=== PATIENT | female | born 1960 | race Caucasian/White ===

== ENCOUNTER → 2024-04-12 07:38 | Outpatient (REF) | payer MEDICARE, BC, SELFPAY | LOC: HWWDC 07:38 | PROVIDERS: ATTENDING PHYSICIAN Obstetrics & Gynecology | DX: Z12.31 Encounter for screening mammogram for malignant neoplasm of breast (principal) | CPT/HCPCS: 77063; 77067 ==

== ENCOUNTER 2024-07-20 08:54 | Emergency (ER) | payer MEDICARE, BC, SELFPAY ==
[2024-07-20] VITALS (7 sets, daily range): BP systolic 92–117; BP diastolic 64–74; BMI 23.3
--- NOTE | 2024-07-20 09:47 | ED.GENMED ---
Addendum entered and electronically signed by Jayme Calhoun DO 07/24/24 11:28:
Patient CT report has abdominal pain, nausea, vomiting diarrhea. Met with the patient and she stated that there was no nausea vomiting or diarrhea. This is confirmed by Dr. Golden's chart.
Original Note:
History of Present Illness
General
Chief Complaint: Abdominal Pain
Time Seen by Provider: 07/20/24 09:38
History of Present Illness
History of Present Illness:
64-year-old female presenting with left lower quadrant abdominal pain for the past 1 week that has been progressively worsening. Patient denies nausea, vomiting, diarrhea, dysuria, hematuria, fever or chills. Patient denies history of similar
symptoms. Pt states she has had a colonoscopy in the past that removed polyps, no hx IBD.
Past History
Past History
ED Past Medical History: Hypercholesterolemia
ED Past Surgical History: None
Social History
Tobacco: Non-smoker
Alcohol: None
Personal:
Living: with family
Phy Exam
Physical Exam
Physical Exam:
General: Alert, no acute distress
Head: NCAT
Eyes: clear conjunctiva
Neck: supple
Cardiac: regular rate and rhythm, no murmur
Lungs: clear to auscultation bilaterally. No wheezes, rales, or rhonchi. Speaking full unlabored sentences. No respiratory distress.
Abdomen: soft, nondistended, LLQ tenderness. No rebound or guarding.
MSK: no lower extremity edema bilaterally. No deformity
Skin: warm, dry
Neuro: Alert and oriented x3. no focal deficits
Course
Orders/Labs/Results
Orders:
Orders
07/20/24 09:45
Ketorolac [Toradol] 15 mg IV NOW STA
07/20/24 09:46
CT Abd/Pel (IV only)-DH only Urgent
Comment:
Reason For Exam: llq tenderness
0.9% Sodium Chloride 1000 ml [Nss] 1,000 ml IV BOLUS
07/20/24 10:31
CBC/With Diff [Complete Blood Count/With Diff] Urgent
CMP [Comprehensive Metabolic Panel] Urgent
Lactic Acid Urgent
Lipase Urgent
07/20/24 11:31
Urinalysis Reflex To Culture Urgent
Date Specimen was Collected: 07/20/24
Time Specimen was Collected: 11:30
Abnormal Lab Results
07/20/24
10:31
MCHC 32.9 L g/dL
(33.0-37.0)
BUN 22 H mg/dl
(7-17)
07/20/24 10:31
07/20/24 10:31
Vital Signs
Initial and Last Documented VS:
Initial Vital Signs
Temp Pulse Resp BP Pulse Ox
99.6 F 88 18 117/74 96
07/20/24 08:58 07/20/24 08:58 07/20/24 08:58 07/20/24 08:58 07/20/24 08:58
Last Documented Vital Signs
Temp Pulse Resp BP Pulse Ox
99.6 F 56 14 98/66 96
07/20/24 08:58 07/20/24 14:00 07/20/24 14:00 07/20/24 14:00 07/20/24 14:00
MDM/Problems Addressed
Differential Diagnosis Includes:
Diverticulitis, UTI, kidney stone, colitis
MDM/Problems Addressed:
64yoF presenting with LLQ abdominal pain for the past 1 week with no nausea, vomiting, or diarrhea. Labs reviewed, WBC 6.1 with no left shift or bandemia. Electrolytes within normal limits. Lactic acid 1. UA negative for UTI. CT abdomen/pelvis shows
1. Multiple inflamed loops of small bowel within the left upper quadrant, left mid abdomen, and lower midline abdomen, consistent with enteritis. Enteritis may be infectious or inflammatory.
2. No evidence of mechanical intestinal obstruction. As read by radiology. Discussed results with patient at bedside. Given no nausea, vomiting, or diarrhea with normal labs, lower suspicion for infectious etiology, will hold on antibiotics at this
time. Advised to follow up with GI. Pt expressed verbal understanding.
*Critical Care Note
Total Time (30-74mins, 75-104mins- exclusive of procedures): Not Applicable
ED Attending Note
-
Portions of this chart may have been created with voice recognition software.� Occasional wrong word or��sound alike� substitutions may have occurred due to the inherent limitations of voice recognition software.
Discharge Plan
Departure
Patient Disposition: Home (Routine Discharge)
Date of Disposition: 07/20/24
Time of Disposition: 14:30
Patient with high blood pressure during this ER visit?: No
Discharge Problem:
Enteritis
Instructions: Abdominal Pain
Prescriptions:
No Action
rosuvastatin 5 MG tablet
5 mg PO QPM
calcium carbonate-vitamin D3 [Oyster Shell Calcium-Vit D3] 500 MG tablet
2 tab PO DAILY
coenzyme J36-onedoul E 1 CAP capsule
300 mg PO DAILY
cholecalciferol (vitamin D3) 2,000 UNITS tablet
2,000 units PO DAILY
azithromycin 250 MG tablet
250 mg PO Daily Qty: 6 0RF
Rx Instructions:
500mg day 1, 250mg days 2-5
oseltamivir 75 MG capsule
75 mg PO BID Qty: 10 0RF
Promethazine/Phenyleph/Codeine [Promethazine Vc-Codeine Soln] 473 ML Syrup
5 - 10 ml PO Q8 Qty: 120 0RF
Referrals:
Jayme Joseph MD [Active] -
Max Lozano MD [Family Provider] -
Activity Restrictions/Additional Instructions:
Take tylenol 975mg every 6 hours and/or ibuprofen 800mg every 8 hours with food as needed for pain
Follow up with GI in 1-2 days
Return to the emrgency department for fever, persistent vomiting, diarrhea or new/worsening symptoms
Interventions
Interventions:
*Risk Screen - Suicide Last Done: 07/20/24 08:58
*General Assessment Last Done: 07/20/24 08:58
*Neglect/Abuse Screening Last Done: 07/20/24 08:58
ED- Fall Risk Assessment Last Done: 07/20/24 10:36
*ED COVID-19 Vaccine History Last Done: 07/20/24 08:58
VD-Tylqmk-Rxnxlkbrqm Assessment Last Done: 07/20/24 11:27
Discharge Date and Time
Print Language: PAP[place]
[2024-07-20] MEDS: NSS 1000 IV (10:39)
[2024-07-20 10:41] LABS: % Basophils 0.2 % (0-2); % Eosinophils 1.3 % (0-6); % Immature Granulocytes 0.3 % (0-0.5); % Monocytes 8.1 % (1.7-9.3); % Neutrophils 60.1 % (42.2-75.2); Absolute Eosinophils 0.1 10^3/uL (0-0.7); Absolute Lymphocytes 1.8 10^3/uL (1.2-3.4); Absolute Monocytes 0.5 10^3/uL (0.1-0.6); Absolute Neutrophils 3.6 10^3/uL (1.4-6.5); Hematocrit 42.8 % (37.0-47.0); Hemoglobin 14.1 g/dL (12.0-16.0); Mean Corp Hgb Conc. 32.9 g/dL (33.0-37.0); Mean Corpuscular Hgb 28.3 pg (27.0-31.0); Mean Corpuscular Volume 85.8 fL (81.0-99.0); Mean Platelet Volume 9.7 fL (7.4-10.4); Nucleated Red Blood Cells % 0 %; Platelet Count 232 10^3/uL (130-400); Red Blood Cell Count 4.99 10^6/uL (4.20-5.40); Red Cell Dist. Width 12.8 % (11.5-14.5); White Blood Cell Count 6.1 10^3/uL (4.8-10.8)
[2024-07-20 10:59] LABS: ALT (SGPT) 17 U/L (0-35); AST (SGOT) 25 U/L (14-36); Albumin 3.9 g/dl (3.5-5.0); Alkaline Phosphatase 64 U/L (38-126); Blood Urea Nitrogen 22 mg/dl (7-17); Calcium 9.6 mg/dl (8.4-10.2); Carbon Dioxide 27 mmol/L (22-30); Chloride 106 mmol/L (98-107); Estimated Creatinine Clearance 57 ml/min; Glucose 90 mg/dl (70-99); Lipase 87 U/L (23-300); Potassium 4.5 mmol/L (3.5-5.1); Sodium 139 mmol/L (135-145); Total Bilirubin 0.3 mg/dl (0.2-1.3); Total Protein 6.5 g/dl (6.3-8.2); eGFR > 60.00
[2024-07-20 11:51] LABS: Urine Albumin Negative (Neg - Trace); Urine Bilirubin Negative (Negative); Urine Character Clear (Clear); Urine Color Yellow; Urine Glucose Negative (Negative); Urine Ketone Negative (Negative); Urine Leukocyte Negative (Negative); Urine Nitrite Negative (Negative); Urine Occult Blood Negative (Negative); Urine Specific Gravity 1.015 (<1.030); Urine Urobilinogen Negative (Neg - 1+)
--- NOTE | 2024-07-20 14:26 | EDRN ---
Dr. Golden in room w/ pt at this time.
== END 2024-07-20 14:46 | disposition home or self-care (01) ==
LOC: EMR 08:54
PROVIDERS: EMERGENCY PHYSICIAN Emergency Medicine; FAMILY PHYSICIAN Internal Medicine Nephrology
DX: K52.9 Noninfective gastroenteritis and colitis, unspecified (principal); R10.32 Left lower quadrant pain; E78.00 Pure hypercholesterolemia, unspecified; Z86.0100 Personal history of colon polyps, unspecified
CPT/HCPCS: 99284; 96374; 96361; 74177; 80053; 81003; 83605; 83690; 85025; Q9967

== ENCOUNTER → 2024-07-25 16:46 | Outpatient (REF) | payer MEDICARE, BC, SELFPAY | LOC: RAD 16:46 | PROVIDERS: ATTENDING PHYSICIAN Surgery | DX: K52.9 Noninfective gastroenteritis and colitis, unspecified (principal) | CPT/HCPCS: 74174; Q9967 ==

== ENCOUNTER → 2025-03-26 07:52 | Outpatient (REF) | payer MEDICARE, BC, SELFPAY | LOC: HWRAD 07:52 | PROVIDERS: OTHER PHYSICIAN Obstetrics & Gynecology | DX: Z13.820 Encounter for screening for osteoporosis (principal); Z78.0 Asymptomatic menopausal state | CPT/HCPCS: 77080 ==

== ENCOUNTER → 2025-04-17 06:26 | Outpatient (REF) | payer MEDICARE, BC, SELFPAY | LOC: HWWDC 06:26 | PROVIDERS: ATTENDING PHYSICIAN Obstetrics & Gynecology; FAMILY PHYSICIAN Family Medicine | DX: Z12.31 Encounter for screening mammogram for malignant neoplasm of breast (principal) | CPT/HCPCS: 77063; 77067 ==